=== PATIENT | female | born 1960 | race American Indian/Alaskan Native ===

== ENCOUNTER 2017-05-18 22:16 | Emergency (ER) | payer SELFPAY ==
[2017-05-18 23:51] LABS: Bacteria,Urine 1+ /HPF (Negative); Bilirubin,Urine NEG (Negative); Blood,Urine NEG (Negative); Color,Urine Straw (Yellow); Mucus,Urine FEW /HPF; Protein,Urine <15 mg/dL mg/dL (Negative); Urobilinogen,Urine < 2.0 mg/dL (<2.0)
[2017-05-18 23:53] LABS: HCG Qualitative,Urine Negative (Negative)
[2017-05-19] MEDS ORDERED: ZOFRAN ODT ONE (03:07)
[2017-05-19] MEDS ORDERED: ZOFRAN ODT PO ONE (03:20)
[2017-05-19] MEDS ORDERED: TORADOL IM ONE (06:32)
[2017-05-19] MEDS ORDERED: ZITHROMAX PO ONE (06:55)
[2017-05-19] MEDS ORDERED: ROCEPHIN 250 MG in NACL 0.9% 50 ML IV ONE (06:55)
[2017-05-19] MEDS ORDERED: cefTRIAXone 0.25 GM in NACL 0.9% 20 ML IV SCH (07:00)
[2017-05-19 07:10] LABS: Basophils % (Auto) 0.9 % (0.0-1.8); Eosinophils % (Auto) 1.3 % (0.0-4.3); Hematocrit 37.1 % (30.3-42.9); Hemoglobin 12.4 gm/dl (10.1-14.3); Lymphocytes # (Auto) 1.1 K/mm3 (1.2-5.4); Lymphocytes % (Auto) 32.9 % (13.4-35.0); Mean Corpuscular HGB Conc 33 % (30-34); Mean Corpuscular Hemoglobin 30 pg (28-32); Mean Corpuscular Volume 91 fl (79-97); Monocytes # (Auto) 0.5 K/mm3 (0.0-0.8); Monocytes % (Auto) 15.2 % (0.0-7.3); Platelet Count 159 K/mm3 (140-440); Red Cell Distribution Width 13.8 % (13.2-15.2)
[2017-05-19 07:29] LABS: Alanine Aminotransferase 14 units/L (7-56); Albumin 3.9 g/dL (3.9-5); BUN/Creatinine Ratio 23; Blood Urea Nitrogen 14 mg/dL (7-17); Calcium 9.2 mg/dL (8.4-10.2); Hemolysis Index 11
--- NOTE | 2017-05-19 08:12 | Emergency Department Report ---
ED Female HPI - General Chief complaint: Nausea/Vomiting/Diarrhea Stated complaint: N/V/D Time Seen by Provider: 05/19/17 06:24 Source: patient Mode of arrival: Ambulatory Limitations: No Limitations - History of Present Illness Initial comments: 57-year-old female with no past medical history the past surgical history of C- section presents to the hospital with complaints of lower abd pressure discomfort with urination. Symptoms 1 week. Mild frequency reported. Patient states she has a sore her vaginal area that exacerbated with urination. She had 2 episodes of vomiting times one day but denies diarrhea, fever, or vaginal discharge. Patient is sexually active with a long-term partner does not use condoms patient states she has had similar symptoms in the past with chlamydia infection. - Related Data Previous Rx's Medication Instructions Recorded Last Taken Type Acyclovir [Zovirax Tab] 400 mg PO Q8H 5 Days tab 05/19/17 Unknown Rx Ibuprofen [Motrin] 600 mg PO Q8H PRN #30 tablet 05/19/17 Unknown Rx Ondansetron [Zofran Odt] 4 mg PO Q8HR PRN #20 tab.rapdis 05/19/17 Unknown Rx Sulfamethoxazole/Trimethoprim 1 each PO BID #6 tablet 05/19/17 Unknown Rx [Bactrim DS TAB] metroNIDAZOLE [Flagyl] 500 mg PO Q12HR #14 tab 05/19/17 Unknown Rx traMADol [Ultram 50 MG tab] 50 mg PO Q6HR PRN #14 tablet 05/19/17 Unknown Rx Allergies Allergy/AdvReac Type Severity Reaction Status Date / Time No Known Allergies Allergy Verified 05/19/17 03:09 ED Review of Systems ROS: Stated complaint: N/V/D Other details as noted in HPI Comment: All other systems reviewed and negative Other: Constitutional: No fevers chills Eyes: No eye pain visual changes ENT: No ear pain or throat pain Neck: Denies pain Respiratory: Denies cough wheezing shortness of breath Cardiovascular: Denies chest pain, palpitations, syncope GI: As per HPI : As per HPI Musculoskeletal: Denies back pain Skin: Denies rash, lesions, erythema Neurologic: Denies headache, numbness, weakness Psychiatric: Denies suicidal ideation, hallucinations ED Past Medical Hx - Past Medical History Previous Medical History?: No - Surgical History Additional Surgical History: c sect x 2 - Social History Smoking Status: Current Every Day Smoker Substance Use Type: Alcohol - Medications Home Medications: Home Medications Medication Instructions Recorded Confirmed Last Taken Type Acyclovir [Zovirax Tab] 400 mg PO Q8H 5 Days tab 05/19/17 Unknown Rx Ibuprofen [Motrin] 600 mg PO Q8H PRN #30 tablet 05/19/17 Unknown Rx Ondansetron [Zofran Odt] 4 mg PO Q8HR PRN #20 tab.rapdis 05/19/17 Unknown Rx Sulfamethoxazole/Trimethoprim 1 each PO BID #6 tablet 05/19/17 Unknown Rx [Bactrim DS TAB] metroNIDAZOLE [Flagyl] 500 mg PO Q12HR #14 tab 05/19/17 Unknown Rx traMADol [Ultram 50 MG tab] 50 mg PO Q6HR PRN #14 tablet 05/19/17 Unknown Rx ED Physical Exam - General Limitations: No Limitations - Other Other exam information: General: No limitations, patient is alert in no acute distress Head exam: Atraumatic, normocephalic Eyes exam: Normal appearance ENT: Moist mucous membrane, normal oropharynx Neck exam: Normal inspection, full range of motion, no meningismus nontender Respiratory exam: Clear to auscultation bilateral, no wheezes, rales, crackles Cardiovascular: Normal rate and rhythm, normal heart sounds Abdomen: Soft, nondistended, suprapubic and left lower quadrant tenderness, with normal bowel sounds, no rebound, or guarding : Ulceration noted to vaginal area the left side. Inferior to labia majora. Tender to palpation. No erythema, edema, or warmth. White vaginal discharge no cervical lesions or erythema. Extremity: Full range of motion normal inspection no deformity Back: Normal Inspection, full range of motion, no tenderness Neurologic: Alert, oriented x3, cranial nerves intact, no motor or sensory deficit Psychiatric: normal affect, normal mood Skin: Warm, dry, intact ED Course Vital Signs 05/18/17 05/19/17 05/19/17 22:55 03:03 06:10 Temperature 98.6 F 98.3 F 98.5 F Pulse Rate 75 69 65 Respiratory 18 16 16 Rate Blood Pressure 138/84 141/90 Blood Pressure 154/89 [Left] O2 Sat by Pulse 100 98 100 Oximetry 05/19/17 05/19/17 05/19/17 06:11 07:10 07:29 Temperature 97.7 F Pulse Rate 74 Respiratory 16 18 Rate Blood Pressure Blood Pressure 125/81 [Left] O2 Sat by Pulse 100 99 100 Oximetry 05/19/17 07:30 Temperature Pulse Rate Respiratory Rate Blood Pressure Blood Pressure [Left] O2 Sat by Pulse 100 Oximetry - Reevaluation(s) Reevaluation #1: 05/19/17 08:11 Patient stable ED Medical Decision Making - Lab Data Result diagrams: 05/19/17 06:57 05/19/17 06:57 Lab Results 05/18/17 05/19/17 05/19/17 Range/Units Unknown 06:57 06:57 WBC 3.4 L (4.5-11.0) K/mm3 RBC 4.10 (3.65-5.03) M/mm3 Hgb 12.4 (10.1-14.3) gm/dl Hct 37.1 (30.3-42.9) % MCV 91 (79-97) fl MCH 30 (28-32) pg MCHC 33 (30-34) % RDW 13.8 (13.2-15.2) % Plt Count 159 (140-440) K/mm3 Lymph % (Auto) 32.9 (13.4-35.0) % [place] % (Auto) 15.2 H (0.0-7.3) % Eos % (Auto) 1.3 (0.0-4.3) % Baso % (Auto) 0.9 (0.0-1.8) % Lymph # 1.1 L (1.2-5.4) K/mm3 [place]ayson # 0.5 (0.0-0.8) K/mm3 Eos # 0.0 (0.0-0.4) K/mm3 Baso # 0.0 (0.0-0.1) K/mm3 Seg Neutrophils % 49.7 (40.0-70.0) % Seg Neutrophils # 1.7 L (1.8-7.7) K/mm3 Sodium 137 (137-145) mmol/L Potassium 4.4 (3.6-5.0) mmol/L Chloride 97.4 L (98-107) mmol/L Carbon Dioxide 27 (22-30) mmol/L Anion Gap 17 mmol/L BUN 14 (7-17) mg/dL Creatinine 0.6 L (0.7-1.2) mg/dL Estimated GFR > 60 ml/min BUN/Creatinine Ratio 23 % Glucose 91 (65-100) mg/dL Calcium 9.2 (8.4-10.2) mg/dL Total Bilirubin 0.30 (0.1-1.2) mg/dL AST 22 (5-40) units/L ALT 14 (7-56) units/L Alkaline Phosphatase 67 (35-129) units/L Total Protein 6.7 (6.3-8.2) g/dL Albumin 3.9 (3.9-5) g/dL Albumin/Globulin Ratio 1.4 % Urine Color Straw (Yellow) Urine Turbidity Clear (Clear) Urine pH 6.0 (5.0-7.0) Ur Specific [place] 1.009 (1.003-1.030) Urine Protein <15 mg/dl (Negative) mg/dL Urine Glucose (UA) Neg (Negative) mg/dL Urine Ketones Tr (Negative) mg/dL Urine Blood Neg (Negative) Urine Nitrite Neg (Negative) Urine Bilirubin Neg (Negative) Urine Urobilinogen < 2.0 (<2.0) mg/dL Ur Leukocyte Esterase Neg (Negative) Urine WBC (Auto) 2.0 (0.0-6.0) /HPF Urine RBC (Auto) 2.0 (0.0-6.0) /HPF U Epithel Cells (Auto) < 1.0 (0-13.0) /HPF Urine Bacteria (Auto) 1+ (Negative) /HPF Urine Mucus Few /HPF Urine HCG, Qual Negative (Negative) - Medical Decision Making In the ED patient received Toradol for pain. Empirically treated for gonorrhea or chlamydia with Rocephin and azithromycin. Patient denies a history of herpes. She does have ulceration without vesicles to one specific area. Denies any recent trauma or abrasion. Patient will be empirically treated for herpes. Outpatient follow-up will be encouraged. Patient will also be treated with Macrobid for UTI symptoms. Patient will also be treated for bacterial vaginosis - Differential Diagnosis UTI, STD, vaginitis, cervicitis, diverticulitis Critical Care Time: No Critical care attestation.: If time is entered above; I have spent that time in minutes in the direct care of this critically ill patient, excluding procedure time. ED Disposition Clinical Impression: Vaginal sore, Dysuria, Pelvic pain, BV (bacterial vaginosis) Disposition: DC- TO HOME OR SELFCARE Is pt being admited?: No Does the pt Need Aspirin: No Condition: Stable Instructions: Bacterial Vaginosis (ED), Genital Herpes Simplex (ED), Dysuria ( ED) Additional Instructions: You are being treated for bacterial vaginosis based on your vaginal exam. You have a sore on outside a vagina that is suspicious for herpes however, I am unable to confirm this in the ER. He had been prescribed acyclovir for 5 days to treat for herpes. I recommended follow-up with [facility] for specific testing for herpes. Your urine did not show signs of infection in the ED but you will be covered with antibiotic for treatment given your symptoms.Your gonorrhea and chlamydia tests are pending and take approximately 3-4 days result. You may obtain results in medical records with a photo ID. You may also obtain results through the follow-up doctor office via medical record request. Prescriptions: Acyclovir [Zovirax Tab] 400 mg PO Q8H 5 Days tab Ibuprofen [Motrin] 600 mg PO Q8H PRN #30 tablet PRN Reason: Pain metroNIDAZOLE [Flagyl] 500 mg PO Q12HR #14 tab Ondansetron [Zofran Odt] 4 mg PO Q8HR PRN #20 tab.rapdis PRN Reason: Nausea And Vomiting Sulfamethoxazole/Trimethoprim [Bactrim DS TAB] 1 each PO BID #6 tablet traMADol [Ultram 50 MG tab] 50 mg PO Q6HR PRN #14 tablet PRN Reason: Pain Referrals: PRIMARY CARE, [Primary Care Provider] - 3-5 Days BUDDY PEREIRA MD [Staff Physician] - 3-5 Days ([facility] Doctor) ALONDRA BROOKS MD [Staff Physician] - 3-5 Days (Primary care doctor) Forms: STI Treatment and Prevention Time of Disposition: 08:28 (will d/c after meds)
[2017-05-19] MEDS ORDERED: ROCEPHIN IM ONE (08:21)
[2017-05-19] MEDS ORDERED: XYLOCAINE 1% MPF 5 mL INFILTRATI ONE (08:21)
[2017-05-19 09:47] VITALS: BP 136/79
== END 2017-05-19 09:58 | disposition home or self-care (01) ==
LOC: ED 22:16
DX: N76.0 Acute vaginitis (principal); B96.89 Other specified bacterial agents as the cause of diseases classified elsewhere; R30.0 Dysuria; F17.200 Nicotine dependence, unspecified, uncomplicated
CPT/HCPCS: 36415; 80053; 81001; 81025; 85025; 87210; 87591; 96372; 99284; J0696; J1885; Q0162

== ENCOUNTER 2020-01-13 14:17 | Emergency (ER) | payer SELFPAY ==
[2020-01-13 14:54] VITALS: BP 150/81
--- NOTE | 2020-01-13 16:46 | XRay Report ---
LEFT SHOULDER 3 VIEWS INDICATION / CLINICAL INFORMATION: PAIN. COMPARISON: None available. FINDINGS: No fracture, dislocation or other significant abnormality. Signer Name: Glen Nowak MD Signed: 01/13/2020 4:41 PM Workstation Name: [id number]
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
[2020-01-13] MEDS ORDERED: IBUPROFEN 600 MG TAB PO ONE ×2 (18:13→18:14)
== END 2020-01-13 17:55 | disposition home or self-care (01) ==
LOC: ED 14:17
DX: S40.012A Contusion of left shoulder, initial encounter (principal); F17.200 Nicotine dependence, unspecified, uncomplicated; Z79.899 Other long term (current) drug therapy; W22.8XXA Striking against or struck by other objects, initial encounter; Y93.89 Activity, other specified; Y92.511 Restaurant or cafe as the place of occurrence of the external cause; Y99.8 Other external cause status
CPT/HCPCS: 99283